=== PATIENT | male | born 1970 | race African-American/Black ===

== ENCOUNTER 2021-07-22 19:20 | Emergency (ER) | payer OTHER ==
[2021-07-22] MEDS ORDERED: Ketorolac Tromethamine 30 MG/ML VIAL ONE (20:34)
[2021-07-22] MEDS ORDERED: HYDROcodone/Acetaminophen 10/325 mg Tablet ONE (20:35)
== END 2021-07-22 22:35 | disposition home or self-care (01) ==
LOC: CSHERS 19:20
DX: N45.1 Epididymitis (principal); E78.5 Hyperlipidemia, unspecified; F17.210 Nicotine dependence, cigarettes, uncomplicated; I10 Essential (primary) hypertension; Z79.899 Other long term (current) drug therapy; Z79.82 Long term (current) use of aspirin
CPT/HCPCS: 76870; 93976; 96372; J1885